=== PATIENT | male | born 1985 | race Caucasian/White ===

== ENCOUNTER 2025-01-21 09:49 | Outpatient (AMB) | payer BC, SELFPAY ==
--- NOTE | 2025-01-21 09:53 | MHC.PC.OV ---
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 ?? Prior PCP:?Antonio Melara MA Last office visit/CPE:? No PCP for Many Years Acute issue(s):? Est Care ?? PMHx:? Hemorrhoids SurgHx:? Lasik FHx:? Mom: Early onset Dementia. Dad: Diabetes. mGF: Bladder CA. pGF: Lung CA SocHx:? Nonsmoker. EtOH: about 3 beers a week. MJ Nightly. No other drigs [facility] Surgical History (Updated 01/21/25 @ 10:06 by Meredith Kong MA) Hx of LASIK Family History (Updated 01/21/25 @ 10:07 by Meredith Kong MA) Mother FH: mental illness Father Diabetes Maternal Grandmother Diabetes Paternal Grandmother Diabetes Social History (Updated 01/21/25 @ 10:01 by Meredith Kong MA) Housing: House Patient Tobacco Use Status: Never used Tobacco e-Cigarette/Vaping Use: Never Used Second Hand Smoke Exposure: No Use of substances other than those prescribed or required for medical reasons: No Substance Use Type: Marijuana service: No Current occupational status: employed 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 1. Little interest or pleasure in doing things: not at all 2. Feeling down, depressed, or hopeless: not at all 3. Trouble falling or staying asleep, or sleeping too much: not at all 4. Feeling tired or having little energy: not at all 5. Poor appetite or overeating: more than half the days 6. Feeling bad about yourself - or that you are a failure or have let yourself or your family down: not at all 7. Trouble concentrating on things, such as reading the newspaper or watching television: not at all 8. Moving or speaking so slowly that other people could have noticed. Or the opposite - being so fidgety or restless that you have been moving around a lot more than usual: not at all 9. Thoughts that you would be better off or of hurting yourself in some way: not at all Total score: 2 Depression Screening Interpretation: Negative Depression Screening Done: Yes 50020 - PHQ-9 Billing: Yes Source: Developed by Drs. Tramaine Jacques, Zenaida Rubin, Theron Howard and colleagues, with an educational jennifer from [employer]. Thrive Questionnaire Date Thrive assessed: 01/21/25 I am a: Patient What is your living situation today?: I have a steady place to live Within the past 12 months, did the food you bought not last and you didn't have the money to get more?: Never true Within the past 12 months, did you worry whether your food would run out before you got money to buy more?: Never true Do you have trouble paying for medicines?: No Do you have trouble getting transportation to medical appointments?: No Do you have trouble paying your heating and electricity bill?: No Do you have trouble taking care of your child, family member or friend?: No Do you have trouble with day-to-day activities such as bathing, preparing meals, shopping, managing finances, etc.?: No Are you currently unemployed and looking for a job?: No Are you interested in more education?: No Please select the resources that you would like help with: None Currently or been in a relationship where the following occur: No concerns reported THRIVE Score: 0 AUDIT C Alcohol Use Questionnaire (AUDIT-C) 1. How often do you have a drink containing alcohol?: 2-3 times a week 2. How many drinks containing alcohol do you have on a typical day when you are drinking?: 1 or 2 3. How often do you have six or more drinks on one occasion?: Never Total Score: 3 Score Reviewed/Action Taken: Yes KRISH-7 AMB Questionnaire KRISH-7 Date KRISH - 7 assessed: 01/21/25 Feeling nervous, anxious, or on edge: 0 = Not at all Not being able to stop or control worryin = Not at all Worrying too much about different things: 0 = Not at all Trouble relaxin = Not at all Being so restless that it is hard to sit still: 0 = Not at all Becoming easily annoyed or irritable: 0 = Not at all Feeling afraid as if something awful might happen: 0 = Not at all Total KRISH-7 score (0-4 normal; 5-9 mild; 10-14 moderate; 15-21 severe): 0 Source: Developed by Drs. Tramaine Jacques, Zenaida Rubin, Theron Howard and colleagues, with an educational jennifer from [employer]. KRISH-7 Assessment Billing KRISH-7 Assessment Tool: KRISH-7 Assessment 15346 Review of Systems Const Denies chills, Denies fatigue, Denies fever(s), Denies headache(s) and Denies weakness Eyes Denies change in vision ENT Denies dizziness and Denies headache(s) Card Denies chest pain, Denies lightheadedness, Denies dyspnea and Denies other (Palpitations) Resp Denies cough, Denies dyspnea, Denies wheezing and Denies other ( shortness of breath) GI Denies abdominal pain, Denies melena, Denies hematochezia, Denies change in bowel habits, Denies dyspepsia and Denies nausea Denies hematuria and Denies dysuria Musc Denies numbness and Denies tingling Skin/Breast Denies rash, Denies unusual bruising and Denies wounds Neuro Denies dizziness, Denies headache(s), Denies numbness, Denies Sensory deficit (Neuro), Denies tingling, Denies paresthesias and Denies weakness Psych Denies anxiety and Denies depression Endo Denies fatigue Polo/Lymph Denies easy bleeding and Denies easy bruising Aller/Immun Denies wheezing Physical exam (Primary Care) Vital Signs: Last Vital Signs Temp 98.0 F 01/21/25 10:01 Pulse 65 01/21/25 10:01 Resp 16 01/21/25 10:01 BP 120/69 01/21/25 10:01 Pulse Ox 100 01/21/25 10:01 Oxygen Delivery Method Room Air 01/21/25 10:01 BMI result Body Mass Index 24.5 Tobacco/Smoking Status: Tobacco use Status Tobacco use date assessed 01/21/25 01/21/25 10:01 Patient Tobacco Use Status Never used Tobacco 01/21/25 10:01 e-Cigarette/Vaping Use Never Used 01/21/25 10:01 PHQ-9: PHQ-9 Score PHQ-9: Total score 2 01/21/25 10:47 Depression Screening Interpretation: Negative Thrive Assessment: Date of Thrive Assessment Date Thrive assessed 01/21/25 01/21/25 09:56 Currently or been in a relationship where the following occur: No concerns reported Const General: no acute distress and well developed Nutritional Appearance: well nourished Orientation/consciousness: patient oriented x3 HENMT Head: Yes normocephalic and Yes atraumatic Ears: hearing grossly normal bilaterally and TM's normal bilaterally General nose exam: Normal external nose present and Normal nares present Mouth: Normal oral and palatal mucosa present and moist mucous membranes Teeth and gingiva: dentition normal Throat: Yes posterior oropharynx normal Eyes General: appearance normal, both eyes and all related structures Pupils: Equal, round and reactive pupils present EOM: EOMs intact bilaterally Neck Neck: Yes normal visual inspection, Yes no lymphadenopathy and Yes trachea midline Thyroid: Thyroid normal Carotids: no bruits Lymphatic: no lymphadenopathy noted Chest Chest palpation & inspection: normal inspection of the chest Resp Effort & Inspection: normal respiratory effort Auscultation: clear to auscultation bilaterally Cardio Rate: regular rate Rhythm: regular rhythm Heart sounds: S1 normal heart sound present, S2 normal heart sound present, no gallops, no murmurs and no rubs Bruits: no abdominal aortic bruits and no carotid bruits GI Palpation (GI): No Abdominal aortic bruit present, Soft to palpation, nontender, No hepatosplenomegaly present and No Rebound tenderness present Auscultation: normal bowel sounds General: Yes no CVA tenderness Back/Spine/Pelvis Back: no CVA tenderness Cervical Spine: cervical ROM normal and No Cervical spine tenderness Thoracic/Lumbar Spine: thoraco-lumbar ROM normal, No pain with thoraco-lumbar ROM, No thoracic spinal tenderness and No lumbar spinal tenderness Skin Lesions: no lesions Rashes: no rashes Trauma: no lacerations or abrasions Wounds: no wounds Nails: normal Neuro General: patient oriented x3 and gait normal Cranial nerves: Yes Equal, round and reactive pupils present Cognition (Neuro): normal cognition Gait exam (Neuro): Normal gait present Motor exam (neuro): 5/5 motor strength present throughout Sensory Exam: No Sensory deficit (Neuro) Deep tendon reflexes (DTR's): Right patellar reflex intensity grade: 2+ and Left patellar reflex intensity grade: 2+ Extrem General: Yes normal to inspection and No edema Psych Appearance: grossly normal Affect: normal affect Attitude: cooperative Thought process: Normal thought process present Coding Level of Care Code New Pt Level 3 (12529) New Pt Prev Care 18-39yr(65428 Diagnoses Adult general medical exam Z00.00 History of hemorrhoids Z87.19 Sun-damaged skin L57.8 Additional Codes KRISH-7 Assessment Billing - KRISH-7 Assessment Tool: KRISH-7 Assessment 11816 ([id number]) PHQ-9 - 50978 - PHQ-9 Billing: Yes ([id number]) Assessment & Plan Assessment & Plan (1) Adult general medical exam: Code(s): Z00.00 - Encounter for general adult medical examination without abnormal findings Category: Medical Plan: 39-year-old male presents as new patient for complete physical exam Encouraged healthy diet with active lifestyle and plenty of exercise (2) History of hemorrhoids: Code(s): Z87.19 - Personal history of other diseases of the digestive system Category: Medical Plan: Encouraged good hydration He will let know if he gets a flare-up (3) Sun-damaged skin: Code(s): L57.8 - Other skin changes due to chronic exposure to nonionizing radiation Category: Medical Plan: History of sun damaged skin and patient is bald. Several melanotic lesions on scalp Referred to dermatology Orders: Orders Lipid Panel Today Z00.00 - Encounter for general adult medical examination without abnormal findings Comprehensive [place]. Panel Fast Today Z00.00 - Encounter for general adult medical examination without abnormal findings Microalbumin, Random (w Creat) Today I10 - Essential (primary) hypertension UA CC w/rflx Micro + Cult Today Z00.00 - Encounter for general adult medical examination without abnormal findings TSH reflex Free T4 Today Z00.00 - Encounter for general adult medical examination without abnormal findings Referrals Dermatology Referral L57.8 - Other skin changes due to chronic exposure to nonionizing radiation
[2025-01-21 10:01] VITALS: BP 120/69; PULSE 65; RESP 16; TEMP 36.7; O2SAT 100; BMI 24.5
--- OUTSIDE RECORDS SUMMARY | 2025-01-21 10:38 | XMS_ITS | Clinical Summary ---
Author Organization [facility] Address [address] [place] [id number] Phone Care Team Providers Care Trommel Tender Name Role Phone Jeanmarie Fernandez MD Primary Care Provider [phone] Allergies No known active allergies Medications No known medications Social History Tobacco Use Types Packs/Day Years Used Date Smoking Tobacco: Never Smokeless Tobacco: Never Education Answer Date Recorded Are you interested in more education? Not on eryn e 09/20/2022 Are you concerned about learning? Not on file 09/20/2022 No 09/20/2022 No 09/20/2022 Digital Access Answer Date Recorded No 10/21/2022 No 10/21/2022 No 10/21/2022 Reliable internet access at home? Not on file 10/21/2022 Device with a working camera? Not on file Sex and Gender Information Value Date Recorded Sex Assigned at Not on file Legal Sex Male 5:56 PM EDT Gender Identity Not on file Sexual Orientation Not on file Last Filed Vital Signs Vital Sign Reading Time Taken Comments Blood Pressure 122/83 10/08/2018 9:42 AM EDT Pulse 89 10/08/2018 9:42 AM EDT Temperature 36.6 C (97.8 F) 10/08/2018 9:42 AM EDT Respiratory Rate - - Oxygen Saturation 100% 10/08/2018 9:42 AM EDT Inhaled Oxygen Concentration - - Weight - - Height - - Body Mass Index - - Plan of Treatment Health Maintenance Due Date Last Done Comments LIPID PANEL 1986 DEPRESSION SCREENING 1998 HEPATITIS C SCREENING 2004 HIV ONE-TIME SCREENING (18-6 5 YEARS) 2004 COVID-19 VACCINE (3 2023-2 5 season) 2024 2020, 09/07/2020 Adult Td,Tdap Booster 10/01/2025 10/02/2015 SMOKING STATUS SCREENING (On ce After 26 Yrs) Completed 10/08/2018 HEPATITIS A VACCINES Aged Out No long er eligible based on patient's age to complete this topic HIB VACCINES Aged Out No longer eligi ble based on patient's age to complete this topic MENINGOCOCCAL VACCINES (ACWY) Aged Out No longer eligible based on patient's age to complete this topic MENINGOCOCCAL VACCINES (B) Aged Out N o longer eligible based on patient's age to complete this topic PNEUMOCOCCAL VACCINES (0-49 years) Aged Out No longer eligible b ased on patient's age to complete this topic Medical Devices Not on file Care Teams Trommel Tender Relationship Specialty Start Date End Date Jeanmarie Fernandez MD [email or web address] PCP - General Family Medicine 12/24/17 Additional Source Comments The information contained in this document represents components of the legal health record. It is not the complete legal health record.[facility]
--- OUTSIDE RECORDS SUMMARY | 2025-01-21 10:38 | XMS_ITS | Encounter Summary ---
Author Organization [facility] Address [address] [place] [id number] Phone Care Team Providers Care Supportability Engineer Name Role Phone Jeanmarie Fernandez MD Primary Care Provider [phone] Jeanmarie Fernandez MD Primary Care Provider [phone] Encounter Details Date Type Department Care Team (Late st Contact Info) Description 10/29/2016 Transcribe Orders [facility] Admissions Department - Virtual Department [address] [place] [id number] Jeanmarie Fernandez MD [address] [place] [phone] [email or web address] Social History Tobacco Use Types Packs/Day Years Used Date Smoking Tobacco: Never Assessed Sex and Gender Information Value Date Recorded Sex Assigned at Not on file Legal Sex Male 5:56 PM EDT Gender Identity Not on file Sexual Orientation Not on file documented as of this encounter Plan of Treatment Not on file documented as of this encounter Visit Diagnoses Not on filedocumented in this encounter Care Teams Supportability Engineer Relationship Specialty Start Date End Date Jeanmarie Fernandez MD [email or web address] PCP - General Family Medicine 10/29/16 10/29/16 Jeanmarie Fernandez MD [phone] (work) [email or web address] PCP - General Family Medicine 12/24/17 documented as of this encounter Additional Source Comments The information contained in this document represents components of the legal health record. It is not the complete legal health record.[facility]
== END 2025-01-21 11:22 | disposition home or self-care (01) ==
LOC: HO.HMCFM 09:50
PROVIDERS: PCP Family Medicine; Visit Provider Family Medicine
DX: Z00.00 Encounter for general adult medical examination without abnormal findings (principal); Z87.19 Personal history of other diseases of the digestive system; L57.8 Other skin changes due to chronic exposure to nonionizing radiation

== ENCOUNTER → 2025-01-21 09:49 | Outpatient (BNVA) | payer BC, SELFPAY | PROVIDERS: PCP Family Medicine; Visit Provider Family Medicine | DX: Z00.00 Encounter for general adult medical examination without abnormal findings (principal); I10 Essential (primary) hypertension; L57.8 Other skin changes due to chronic exposure to nonionizing radiation; Z87.19 Personal history of other diseases of the digestive system | CPT/HCPCS: 96127 ==

== ENCOUNTER 2025-01-28 08:47 | Outpatient (REF) | payer BC, SELFPAY ==
--- OUTSIDE RECORDS SUMMARY | 2025-01-28 09:20 | XMS_ITS | Encounter Summary ---
Author Organization [facility] Address [address] [place] [address] Phone Care Team Providers Care Magazine Hand Name Role Phone Jeanmarie Fernandez MD Primary Care Provider [phone] Jeanmarie Fernandez MD Primary Care Provider [phone] Encounter Details Date Type Department Care Team (Late st Contact Info) Description 10/29/2016 Transcribe Orders [facility] Admissions Department - Virtual Department [address] [place] [phone] Jeanmarie Fernandez MD [address] [place] [phone] Social History Tobacco Use Types Packs/Day Years [...] on filedocumented in this encounter Care Teams Magazine Hand Relationship Specialty Start Date End Date Jeanmarie Fernandez MD PCP - General Family Medicine 10/29/16 10/29/16 Jeanmarie Fernandez MD [phone] (work) [email or web address] PCP - General Family Medicine 12/24/17 documented as of this encounter Additional Source Comments The information contained in this document represents components of the legal health record. It is not the complete legal health record.[facility]
--- OUTSIDE RECORDS SUMMARY | 2025-01-28 09:20 | XMS_ITS | Clinical Summary ---
Author Organization [facility] Address [address] [place] [phone] Phone Care Team Providers Care Credit Rating Inspector Name Role Phone Jeanmarie Fernandez MD Primary Care Provider [phone] Allergies No known active allergies Medications No [...] HIV ONE-TIME SCREENING (18-6 5 YEARS) 2004 INFLUENZA VACCINE (#1) 2024 04/11/2016 COVID-19 VACCINE (3 - 2024-2 6 season) 2025 2020, 09/07/2020 Adult Td,Tdap Booster 10/01/2025 10/02/2015 [...] Medical Devices Not on file Care Teams Credit Rating Inspector Relationship Specialty Start Date End Date Jeanmarie Fernandez MD [email or web address] PCP - General Family Medicine 12/24/17 Additional Source Comments The information contained in this document represents components of the legal health record. It is not the complete legal health record.[facility]
[2025-01-28 11:13] LABS: Appearance Urine Clear; Glucose Urine UA Negative (Negative); PH 5.5 (5.0-9.0); Specific Gravity - Urine >= 1.030 (1.005-1.025)
[2025-01-28 11:50] LABS: Alanine Aminotransferase 32 U/L (0-40); Albumin Level 4.9 g/dL (3.5-5.0); Alkaline Phosphatase 78 U/L (39-117); Anion Gap 9 (12-20); Aspartate Amino Transferase 31 U/L (5-37); Blood Urea Nitrogen 19 mg/dL (9-16); Calcium 9.2 mg/dL (8.4-10.2); Carbon Dioxide 30 mmol/L (22-29); Chloride 105 mmol/L (96-108); Cholesterol 230 mg/dL (<200); Estimated Glomerular Filt Rate > 60; HDL Cholesterol 39 mg/dL (>40); Potassium 4.1 mmol/L (3.3-5.1); Sodium 140 mmol/L (135-145); Total Protein 7.5 g/dL (6.5-8.0); Triglycerides 125 mg/dL (<150)
[2025-01-28 12:04] LABS: Microalbum/Creatinine Ratio Ur 3.5 ug/mg cr (<30)
== END 2025-01-28 08:48 | disposition home or self-care (01) ==
LOC: HO.WFDLDS 08:47
PROVIDERS: Visit Provider Family Medicine
DX: Z00.00 Encounter for general adult medical examination without abnormal findings (principal); I10 Essential (primary) hypertension
CPT/HCPCS: 36415; 80053; 80061; 81003; 82043; 82570; 84443

== ENCOUNTER 2025-03-10 11:59 | Outpatient (REF) | payer OTHER, SELFPAY ==
[2025-03-10 17:37] LABS: MANUAL DIFF FLAG NO
[2025-03-10 17:47] LABS: Hematocrit 46.5 % (42.0-52.0); Hemoglobin 15.4 g/dl (14.0-18.0); Imm Gran Abs Auto 0.01 X10*3/uL (0.00-0.03); Imm Gran Pct Auto 0.1 % (0.0-0.4); Lymphocytes Absolute Auto 1.8 X10*3/uL (1.2-4.9); Mean Corpuscular HGB Conc 33.1 g/dl (31.0-36.0); Mean Corpuscular Hemoglobin 29.3 pg (27.0-33.0); Mean Corpuscular Volume 88.6 fL (80.0-98.0); NRBC Abs Auto 0.000 X10*3/uL (0.0-0.012); NRBC Pct Auto 0.0 /100WBC (0.0-0.2); Platelet Count 329 X10*3/uL (160-400); Red Blood Count 5.25 X10*6/uL (4.60-5.80); White Blood Count 7.1 X10*3/uL (4.8-10.8)
[2025-03-10 18:00] LABS: Alanine Aminotransferase 24 U/L (0-40); Albumin Level 5.0 g/dL (3.5-5.0); Alkaline Phosphatase 79 U/L (39-117); Anion Gap 14 (12-20); Aspartate Amino Transferase 24 U/L (5-37); Blood Urea Nitrogen 14 mg/dL (9-16); Calcium 9.5 mg/dL (8.4-10.2); Carbon Dioxide 28 mmol/L (22-29); Chloride 103 mmol/L (96-108); Estimated Glomerular Filt Rate > 60; Potassium 3.8 mmol/L (3.3-5.1); Sodium 141 mmol/L (135-145); Total Protein 7.7 g/dL (6.5-8.0)
[2025-03-10 18:32] LABS: Erythrocyte Sedimentation Rate 5 MM/HR (0-15)
[2025-03-10 18:35] LABS: Folate 7.9 ng/mL (> or = 4.0); Vitamin B12 440 pg/mL (200-900)
[2025-03-11 09:29] LABS: Lyme Abs Screen <0.90 index
== END 2025-03-10 12:00 | disposition home or self-care (01) ==
LOC: HO.WFDLDS 11:59
PROVIDERS: PCP Family Medicine; Visit Provider Family Medicine
DX: Z00.00 Encounter for general adult medical examination without abnormal findings (principal); R42 Dizziness and giddiness; R73.01 Impaired fasting glucose; E53.8 Deficiency of other specified B group vitamins; R53.83 Other fatigue; H53.8 Other visual disturbances; E78.5 Hyperlipidemia, unspecified; R55 Syncope and collapse
CPT/HCPCS: 36415; 80053; 82607; 82746; 83036; 84443; 85025; 85652; 86141; 86617; 86618

== ENCOUNTER 2025-03-10 11:59 | Outpatient (AMB) | payer OTHER, SELFPAY ==
--- NOTE | 2025-03-10 12:04 | MHC.PC.OV ---
Vital Signs 03/10/25 12:06 03/10/25 12:38 03/10/25 12:38 03/10/25 12:39 Height 5 ft 10 in Weight 168 lb BMI 24.1 BP 128/88 138/83 124/84 126/84 Blood Pressure Location Rt brachial Rt brachial Rt brachial Rt brachial Position Sitting Supine Sitting Standing Respiration 14 Pulse 74 71 75 83 Pulse Source Pulse Oximeter Pulse Oximeter Pulse Oximeter Pulse Oximeter Temp 98 F Temp Source Oral Pulse Oximetry (%) 98 100 100 100 Oxygen Delivery Method Room Air Room Air Room Air Room Air Intake Visit Reasons: dizziness with fatigue and vision changes. Intake Note: Dizziness, fatigue, and vision changes. Started February 18. Bull Gang Supervisor Required: No Allergies No Known Allergies Allergy (Verified 03/10/25 12:06) Medication List - Last Reconciled 03/10/25 by Vicente Marcial MD atorvastatin (Lipitor) 40 mg PO BEDTIME 90 days Tobacco use date assessed: 03/10/25 Dental Screening Dental Screen Date: 01/21/25 HPI dizziness with fatigue and vision changes. HPI Details 39 y/o male presents today with complaints of dizziness with fatigue and vision changes. He notes symptoms started x3 weeks ago. Pt describes vision changes as blurriness/lack of ability to focus. He notes symptoms started Jan. . Denies any dizziness on exertion and notes he had been standing for awhile. He had reported fatigue the rest of the day. He notes he saw an opthalmologist and exam had been unrevealing. Labs were drawn 01/28/25. Triglycerides 125. TC 230. LDL 166. HDL low at 39. 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 Current occupational exposures/hazards: No Cognitive needs: No Hearing needs: No Vision needs: No Questionnaire Thrive Questionnaire Date Thrive assessed: 01/18/25 I am a: Patient What is your living situation today?: I have a steady place to live Within the past 12 months, did the food you bought not last and you didn't have the money to get more?: Never true Within the past 12 months, did you worry whether your food would run out before you got money to buy more?: Never true Do you have trouble paying for medicines?: No Do you have trouble getting transportation to medical appointments?: No Do you have trouble paying your heating and electricity bill?: No Do you have trouble taking care of your child, family member or friend?: No Do you have trouble with day-to-day activities such as bathing, preparing meals, shopping, managing finances, etc.?: No Are you currently unemployed and looking for a job?: No Are you interested in more education?: No Please select the resources that you would like help with: None Currently or been in a relationship where the following occur: No concerns reported THRIVE Score: 0 AUDIT C Alcohol Use Questionnaire (AUDIT-C) 1. How often do you have a drink containing alcohol?: Monthly or less 2. How many drinks containing alcohol do you have on a typical day when you are drinking?: 1 or 2 3. How often do you have six or more drinks on one occasion?: Never Total Score: 1 KRISH-7 AMB Questionnaire KRISH-7 Date KRISH - 7 assessed: 01/21/25 Source: Developed by Drs. Tramaine Jacques, Zenaida Rubin, Theron Howard and colleagues, with an educational jennifer from [employer] Review of Systems Const Denies chills, Denies fatigue, Denies fever(s), Denies headache(s) and Denies weakness ENT Denies dizziness and Denies headache(s) Card Denies dyspnea Resp Denies cough, Denies dyspnea, Denies wheezing and Denies other (shortness of breath) Musc Denies numbness and Denies tingling Neuro Denies dizziness, Denies headache(s), Denies numbness, Denies tingling and Denies weakness Psych Denies anxiety and Denies depression Endo Denies fatigue Aller/Immun Denies wheezing Physical exam (Primary Care) Vital Signs: Last Vital Signs Temp 98 F 03/10/25 12:06 Pulse 74 10/16/25 12:06 Resp 14 03/10/25 12:06 BP 128/88 03/10/25 12:06 Pulse Ox 98 03/10/25 12:06 Oxygen Delivery Method Room Air 03/10/25 12:06 BMI result Body Mass Index 24.1 Tobacco/Smoking Status: Tobacco use Status Tobacco use date assessed 03/10/25 03/10/25 12:10 Patient Tobacco Use Status Never used Tobacco 03/10/25 12:06 e-Cigarette/Vaping Use Never Used 03/10/25 12:06 Thrive Assessment: Date of Thrive Assessment Date Thrive assessed 01/18/25 03/10/25 12:05 Currently or been in a relationship where the following occur: No concerns reported Const General: well developed; No acute distress Nutritional Appearance: well nourished Orientation/consciousness: patient oriented x3 HENMT Head: Yes normocephalic and Yes atraumatic Eyes General: appearance normal, both eyes and all related structures Pupils: Equal, round and reactive pupils present EOM: EOMs intact bilaterally Resp Effort & Inspection: normal respiratory effort Auscultation: clear to auscultation bilaterally Cardio Rate: regular rate Rhythm: regular rhythm Heart sounds: S1 normal heart sound present, S2 normal heart sound present, no gallops, no murmurs and no rubs Neuro General: patient oriented x3 and gait normal Cranial nerves: Yes Equal, round and reactive pupils present Psych Affect: normal affect Coding Level of Care Code Est Pt Level 4 (81432) Diagnoses Dizziness R42 Vision changes H53.9 Hyperlipidemia E78.5 Pre-syncope R55 Assessment & Plan Assessment & Plan (1) Dizziness: Code(s): R42 - Dizziness and giddiness Category: Medical Plan: Around Feb 16 dizziness episode. No exertion. Had been standing for a while. Lightheadedness. Presyncopal description. Then fatigue for the rest of the day. Shortly after while driving home he had sudden vision change at L eye with inability to focus. L eye vision change and saw Ophtho. was able to see with lens testing. He also mentioned to Ophtho that he had gotten some peroxide in eye a few weeks before vision change. He was told eye looked healthy - h/o Lasik and this looked ok too. Given eye drops; Tobramycin w/ Dexamethasone & Systane. Still cannot focus w/ L eye. (2) Vision changes: Code(s): H53.9 - Unspecified visual disturbance Category: Medical (3) Hyperlipidemia: Code(s): E78.5 - Hyperlipidemia, unspecified Category: Medical (4) Pre-syncope: Code(s): R55 - Syncope and collapse (5) Pre-syncope: Code(s): R55 - Syncope and collapse Category: Medical Plan Episode of presyncope and severe fatigue and shortly thereafter sudden change in vision of left eye EKG today is normal. Cardiac exam normal lungs are clear Neuro exam: Cranial nerves 3-12 intact - patient notes change inability to focus at left eye and ophthalmology testing did not reveal problem with the eye. Will check CBC and CMP as well as thyroid levels inflammatory markers. Checking carotid ultrasound and Holter monitor test Checking MRI Head/Brain Will return 7-10 days for close follow-up review of the above. Go to ED if symptoms recur or worsen Orders: Orders Comprehensive Met. Panel Today R42 - Dizziness and giddiness TSH reflex Free T4 Today R42 - Dizziness and giddiness, Z00.00 - Encounter for general adult medical examination without abnormal findings Hemoglobin A1c Today R42 - Dizziness and giddiness, R73.01 - Impaired fasting glucose Vitamin B12 and Folate Today E53.8 - Deficiency of other specified B group vitamins, R42 - Dizziness and giddiness AMB EKG-In Office Today R42 - Dizziness and giddiness Lyme IgG/IgM w/reflex to WB Today R42 - Dizziness and giddiness ECG holter monitor 48 hour Today R42 - Dizziness and giddiness, R55 - Syncope and collapse Complete Blood Count Auto Diff Today R42 - Dizziness and giddiness, Z00.00 - Encounter for general adult medical examination without abnormal findings Erythrocyte Sedimentation Rate Today R42 - Dizziness and giddiness CRP High Sensitivity Today R42 - Dizziness and giddiness US carotid duplex BI Today E78.5 - Hyperlipidemia, unspecified, H53.9 - Unspecified visual disturbance, R42 - Dizziness and giddiness MR head/brain w con Today E78.5 - Hyperlipidemia, unspecified, H53.9 - Unspecified visual disturbance, R42 - Dizziness and giddiness, R55 - Syncope and collapse Referrals Neurology Referral H53.9 - Unspecified visual disturbance, R42 - Dizziness and giddiness, R55 - Syncope and collapse Medications: New atorvastatin (Lipitor) 40 mg PO BEDTIME 90 tabs 3RF 90 days
[2025-03-10 12:06] VITALS: BP 128/88; PULSE 74; RESP 14; TEMP 36.6; O2SAT 98; BMI 24.1
[2025-03-10 12:38] VITALS: BP 124/84; BP 138/83; PULSE 71; PULSE 75; O2SAT 100
[2025-03-10 12:39] VITALS: BP 126/84; PULSE 83; O2SAT 100
--- OUTSIDE RECORDS SUMMARY | 2025-03-10 15:13 | XMS_ITS | Encounter Summary ---
Author Organization [facility] Address [address] [place] [address] Phone Care Team Providers Care Retread Builder Name Role Phone Jeanmarie Fernandez MD Primary Care Provider [phone] Jeanamrie Fernnadez MD Primary Care Provider [phone] Encounter Details Date Type Department Care Team (Late st Contact Info) Description 10/29/2016 Transcribe Orders [facility] Admissions Department - Virtual Department [address] [place] [id number] Jeanmarie Fernandez MD [address] [place] [phone] [email or web address] Social History Tobacco Use Types Packs/Day Years [...] on filedocumented in this encounter Care Teams Retread Builder Relationship Specialty Start Date End Date Jeanmarie Fernandez MD [email or web address] PCP - General Family Medicine 10/29/16 10/29/16 Jeanmarie Fernandez MD [phone] (work) [email or web address] PCP - General Family Medicine 12/24/17 documented as of this encounter Additional Source Comments The information contained in this document represents components of the legal health record. It is not the complete legal health record.[facility]
--- OUTSIDE RECORDS SUMMARY | 2025-03-10 15:13 | XMS_ITS | Clinical Summary ---
Author Organization [facility] Address [address] [place] [address] Phone Care Team Providers Care Photoengraving Printer Name Role Phone Jeanmarie Fernandez MD Primary Care Provider [phone] Allergies No known active allergies Medications No [...] Medical Devices Not on file Care Teams Photoengraving Printer Relationship Specialty Start Date End Date Jeanmarie Fernandez MD [email or web address] PCP - General Family Medicine 12/24/17 Additional Source Comments The information contained in this document represents components of the legal health record. It is not the complete legal health record.[facility]
== END 2025-03-10 13:06 | disposition home or self-care (01) ==
LOC: HO.HMCFM 11:59
PROVIDERS: PCP Family Medicine; Visit Provider Family Medicine
DX: R42 Dizziness and giddiness (principal); H53.9 Unspecified visual disturbance; E78.5 Hyperlipidemia, unspecified; R55 Syncope and collapse

== ENCOUNTER → 2025-03-21 07:31 | Outpatient (REF) | payer OTHER, SELFPAY ==
--- OUTSIDE RECORDS SUMMARY | 2025-03-21 07:34 | XMS_ITS | Encounter Summary ---
Author Organization [facility] Address [address] [place] [phone] Phone Care Team Providers Care Property Manager Name Role Phone Jeanmarie Fernandez MD Primary Care Provider [phone] Jeanmarie Fernandez MD Primary Care Provider [phone] Encounter Details Date Type Department Care Team (Late st Contact Info) Description 10/29/2016 Transcribe Orders [facility] Admissions Department - Virtual Department [address] [place] [phone] Jeanmarie Fernandez MD [address] [place] [address] Social History Tobacco Use Types Packs/Day Years [...] on filedocumented in this encounter Care Teams Property Manager Relationship Specialty Start Date End Date Jeanmarie Fernandez MD PCP - General Family Medicine 10/29/16 10/29/16 Jeanmarie Fernandez MD [phone] (work) [email or web address] PCP - General Family Medicine 12/24/17 documented as of this encounter Additional Source Comments The information contained in this document represents components of the legal health record. It is not the complete legal health record.[facility]
--- OUTSIDE RECORDS SUMMARY | 2025-03-21 07:34 | XMS_ITS | Clinical Summary ---
Author Organization [facility] Address [address] [place] [address] Phone Care Team Providers Care Brusher Name Role Phone Jeanmarie Fernandez MD Primary Care Provider [phone] Allergies No known active allergies Medications No [...] Medical Devices Not on file Care Teams Brusher Relationship Specialty Start Date End Date Jeanmarie Fernandez MD [email or web address] PCP - General Family Medicine 12/24/17 Additional Source Comments The information contained in this document represents components of the legal health record. It is not the complete legal health record.[facility]
--- NOTE | 2025-03-21 07:35 | HM_ITS ---
Conclusion: 1. Patient was monitored for total period of 2 days 2. Baseline was normal sinus rhythm with average heart of 79 beats per minute 3. No significant arrhythmias or pauses noted 4. No patient reported events MTDD
== END ==
LOC: HO.CARD 07:31
PROVIDERS: PCP Family Medicine; Visit Provider Family Medicine
DX: R55 Syncope and collapse (principal); R42 Dizziness and giddiness
CPT/HCPCS: 93225

== ENCOUNTER → 2025-03-21 07:35 | Outpatient (BNV) | payer OTHER, SELFPAY | PROVIDERS: PCP Family Medicine; Visit Provider Internal Medicine Cardiovascular Disease | DX: R55 Syncope and collapse (principal) | CPT/HCPCS: 93227 ==

== ENCOUNTER 2025-03-25 14:22 | Outpatient (REF) | payer OTHER, SELFPAY ==
--- NOTE | ~2025-03-25 | US_ITS ---
EXAMINATION: US EXTRACRANIAL CAROTID DUPLEX, BILATERAL CLINICAL INFORMATION: R 42. Dizziness and giddiness. COMPARISON: None available. TECHNIQUE: Real-time ultrasound and Doppler techniques (integrating B-mode 2-D vascular images, Doppler spectral analysis and color-flow Doppler imaging) were utilized to interrogate the extracranial carotid arteries, the vertebral arteries and proximal subclavian arteries bilaterally. The degree of stenosis is determined by criteria similar to NASCET. FINDINGS: Right Side: 1. There is no atherosclerotic plaque seen in the bifurcation/proximal ICA region. 2. The common carotid artery PSV proximally is 122 cm/s and distally 101 cm/s. 3. The proximal internal carotid artery velocities are 90 cm/s systolic and 39 cm/s diastolic. 4. The proximal external carotid artery PSV is 125 cm/s. 5. The vertebral artery shows antegrade flow. 6. The subclavian artery waveforms are normal. ICA/CCA ratio: 0.64. Left Side: 1. There is no atherosclerotic plaque seen in the bifurcation/proximal ICA region. 2. The common carotid artery PSV proximally is 113 cm/s and distally 102 cm/s. 3. The proximal internal carotid artery velocities are 78 cm/s systolic and 33 cm/s diastolic. 4. The proximal external carotid artery PSV is 110 cm/s. 5. The vertebral artery shows antegrade flow. 6. The subclavian artery waveforms are normal. ICA/CC ratio: 0.69. US/US carotid duplex BI IMPRESSION: 1. RIGHT: No hemodynamically significant stenosis by ultrasound criteria. Normal exam. 2. LEFT: No hemodynamically significant stenosis by ultrasound criteria. Normal exam. Electronically signed by: Vinh Webber MD 03/25/2025 03:02 PM EDT
--- OUTSIDE RECORDS SUMMARY | 2025-03-25 14:59 | XMS_ITS | Clinical Summary ---
Author Organization [facility] Address [address] [place] [address] Phone Care Team Providers Care Mechanic Assistant Name Role Phone Jeanmarie Fernandez MD Primary Care Provider [phone] Allergies No known active allergies Medications No [...] Medical Devices Not on file Care Teams Mechanic Assistant Relationship Specialty Start Date End Date Jeanmarie Fernandez MD [email or web address] PCP - General Family Medicine 12/24/17 Additional Source Comments The information contained in this document represents components of the legal health record. It is not the complete legal health record.[facility]
--- OUTSIDE RECORDS SUMMARY | 2025-03-25 14:59 | XMS_ITS | Encounter Summary ---
Author Organization [facility] Address [address] [place] [address] Phone Care Team Providers Care Merchandise Executive Name Role Phone Jeanmarie Fernandez MD Primary Care Provider [phone] Jeanmarie Fernandez MD Primary Care Provider [phone] Encounter Details Date Type Department Care Team (Late st Contact Info) Description 10/29/2016 Transcribe Orders [facility] Admissions Department - Virtual Department [address] [place] [address] Jeanmarie Fernandez MD [address] [place] [phone] Social History Tobacco Use Types Packs/Day Years [...] on filedocumented in this encounter Care Teams Merchandise Executive Relationship Specialty Start Date End Date Jeanmarie Fernandez MD PCP - General Family Medicine 10/29/16 10/29/16 Jeanmarie Fernandez MD [phone] (work) [email or web address] PCP - General Family Medicine 12/24/17 documented as of this encounter Additional Source Comments The information contained in this document represents components of the legal health record. It is not the complete legal health record.[facility]
== END 2025-03-25 14:23 | disposition home or self-care (01) ==
LOC: HO.US 14:22
PROVIDERS: PCP Family Medicine; Visit Provider Family Medicine
DX: R42 Dizziness and giddiness (principal); H53.9 Unspecified visual disturbance; E78.5 Hyperlipidemia, unspecified
CPT/HCPCS: 93880

== ENCOUNTER → 2025-03-25 14:23 | Outpatient (BNV) | payer OTHER, SELFPAY | PROVIDERS: PCP Family Medicine; Visit Provider Radiology Diagnostic Radiology | DX: R42 Dizziness and giddiness (principal) | CPT/HCPCS: 93880 ==

== ENCOUNTER 2025-03-29 12:29 | Outpatient (AMB) | payer OTHER, SELFPAY ==
[2025-03-29 12:36] VITALS: BP 114/70; PULSE 87; O2SAT 100; BMI 23.5
--- NOTE | 2025-03-29 12:36 | MHC.OFFVIS ---
Vital Signs 03/29/25 12:36 Height 5 ft 10 in Weight 163 lb 8 oz BMI 23.5 BP 114/70 Blood Pressure Location Rt brachial Position Sitting Pulse 87 Pulse Source Pulse Oximeter Pulse Oximetry (%) 100 Oxygen Delivery Method Room Air Intake Visit Reasons: INP-Dizziness and giddiness - Ok by MD Intake Note: Dizziness and giddiness Cloth Brushing And Sueding Supervisor Required: No Accompanied by: Self / Same As Patient Allergies No Known Allergies Allergy (Verified 03/29/25 12:36) Medication List - Last Reconciled 03/29/25 by Yanely Morris MD aspirin 81 mg PO DAILY atorvastatin (Lipitor) 40 mg PO BEDTIME 90 days HPI Comments Details: 39y/o Right handed male comes for evaluation of dizziness. On Feb 17 2025 ( 1 month ago ) he was working looking at his computer screen - felt intense dizziness- weak , lightheaded. He has a standing desk - he leaned his head down and when he walked to the bathroom he felt like he was not steady in space and is going to fall over. No vomiting No headaches He cui son and off tinnitus The whole episode lasted about 10min - intense , felt off for about 60minutes atleast.2 days later he noticed his left eye vision was blurry. He saw an station superintendent - was told everything was normal. No double vision , no weakness , numbness . Denies ear pain. 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 Current occupational exposures/hazards: No Cognitive needs: No Hearing needs: No Vision needs: No Physical Exam Vital Signs: Last Vital Signs Pulse 87 03/29/25 12:36 BP 114/70 03/29/25 12:36 Pulse Ox 100 03/29/25 12:36 Oxygen Delivery Method Room Air 03/29/25 12:36 BMI result Body Mass Index 23.5 Const General: cooperative, healthy appearing, comfortable and no acute distress Nutritional Appearance: average body habitus Orientation/consciousness: patient oriented x3 Eyes Pupils: Equal, round and reactive pupils present Neck Neck: Yes no meningeal signs Neuro General: patient oriented x3, gait normal, tone normal, moves all extremities, no meningeal signs and no focal motor deficits Cranial nerves: Yes Facial sensation intact/muscles of mastication intact, Yes Equal, round and reactive pupils present, Yes Bilaterally intact EOM present, Yes Nystagmus not present, Yes Normal facial strength present, Yes Midline tongue present, Yes Symmetric palate elevation present and Yes Ability to bilaterally elevate shoulders present Cognition (Neuro): normal cognition Gait exam (Neuro): Normal gait present Motor exam (neuro): 5/5 motor strength present throughout and Normal motor muscle tone present throughout Deep tendon reflexes (DTR's): Right triceps reflex intensity grade: 1+, Left triceps reflex intensity grade: 2+, Rt Biceps (C5, C6): 1+, Left biceps reflex intensity grade: 2+, Right brachioradialis reflex intensity grade: 1+, Left brachioradialis reflex intensity grade: 2+, Right patellar reflex intensity grade: 2+ and Left patellar reflex intensity grade: 3+ Coordination: [id number] test normal Assessment & Plan Assessment & Plan (1) Dizziness: Comment: vertigo ? O/E has some asymmetrical reflexes , reports double vision Code(s): R42 - Dizziness and giddiness Category: Medical (2) Blurry vision: Code(s): H53.8 - Other visual disturbances Category: Medical Plan I will evaluate him with MRI with and without keri Evoked potential to evaluate. Orders: Orders MR head/brain wo/w con Today H53.9 - Unspecified visual disturbance, R42 - Dizziness and giddiness EP Visual Evoked Potential Today H53.9 - Unspecified visual disturbance Coding Level of Care Code New Pt Level 4 (60477) Diagnoses Dizziness R42 Blurry vision H53.8
--- OUTSIDE RECORDS SUMMARY | 2025-03-29 15:13 | XMS_ITS | Clinical Summary ---
Author Organization [facility] Address [address] [place] [address] Phone Care Team Providers Care Firestopper Installer Name Role Phone Jeanmarie Fernandez MD Primary Care Provider [phone] Allergies No known active allergies Medications No [...] Medical Devices Not on file Care Teams Firestopper Installer Relationship Specialty Start Date End Date Jeanmarie Fernandez MD [email or web address] PCP - General Family Medicine 12/24/17 Additional Source Comments The information contained in this document represents components of the legal health record. It is not the complete legal health record.[facility]
--- OUTSIDE RECORDS SUMMARY | 2025-03-29 15:13 | XMS_ITS | Encounter Summary ---
Author Organization [facility] Address [address] [place] [phone] Phone Care Team Providers Care Tar Heater Operator Name Role Phone Jeanmarie Fernandez MD Primary Care Provider [phone] Jeanmarie Fernandez MD Primary Care Provider [phone] Encounter Details Date Type Department Care Team (Late st Contact Info) Description 10/29/2016 Transcribe Orders [facility] Admissions Department - Virtual Department [address] [place] [address] Jeanmarie Fernandez MD [address] [place] [phone] [email or web address] Social History Tobacco Use Types Packs/Day Years [...] on filedocumented in this encounter Care Teams Tar Heater Operator Relationship Specialty Start Date End Date Jeanmarie Fernandez MD [email or web address] PCP - General Family Medicine 10/29/16 10/29/16 Jeanmarie Fernandez MD [phone] (work) [email or web address] PCP - General Family Medicine 12/24/17 documented as of this encounter Additional Source Comments The information contained in this document represents components of the legal health record. It is not the complete legal health record.[facility]
== END 2025-03-29 13:07 | disposition home or self-care (01) ==
LOC: HO.HSMS 12:31
PROVIDERS: PCP Family Medicine; Visit Provider Psychiatry & Neurology Neurology
DX: R42 Dizziness and giddiness (principal); H53.8 Other visual disturbances
CPT/HCPCS: 99204

== ENCOUNTER → 2025-04-24 13:45 | Outpatient (BNV) | payer OTHER, SELFPAY | PROVIDERS: PCP Family Medicine; Visit Provider Radiology Diagnostic Radiology | DX: H53.9 Unspecified visual disturbance (principal); J34.89 Other specified disorders of nose and nasal sinuses | CPT/HCPCS: 70553 ==

== ENCOUNTER 2025-04-24 13:49 | Outpatient (REF) | payer OTHER, SELFPAY ==
--- NOTE | ~2025-04-24 | MR_ITS ---
EXAMINATION: MR BRAIN WITHOUT AND WITH CONTRAST CLINICAL INFORMATION: H53.9. Unspecified visual disturbances. COMPARISON: None available. TECHNIQUE: Multiplanar, multisequence MRI of the brain was obtained before and after the intravenous administration of 7.5 mL gadolinium based without reported immediate complications.. FINDINGS: No restricted diffusion. No abnormal enhancement within the intra-axial or the extra-axial compartment of the cranium. No acute intracranial hemorrhage, mass effect, midline shift, hydrocephalus or herniation. Bansal-white matter differentiation is normal. Posterior cranial fossa contents demonstrated no signal abnormality or masses. Normal position of the cerebellar tonsils. Sellar/suprasellar region is normal. Flow-void signal within the main cerebral vessels is normal. Polypoid mucosal thickening, maxillary sinuses. Mucous retention cyst, maxillary sinuses. MR/MR head/brain wo/w con IMPRESSION: No acute or structural brain abnormality. No abnormal enhancement. Polypoid maxillary sinus disease. Electronically signed by: Vinh Webber MD 04/25/2025 07:18 AM JAMAAL
--- OUTSIDE RECORDS SUMMARY | 2025-04-24 13:52 | XMS_ITS | Encounter Summary ---
Author Organization [facility] Address [address] [place] [phone] Phone Care Team Providers Care Bisque Finisher Name Role Phone Jeanmarie Fernandez MD Primary Care Provider [phone] Jeanmarie Fernandez MD Primary Care Provider [phone] Encounter Details Date Type Department Care Team (Late st Contact Info) Description 10/29/2016 Transcribe Orders [facility] Admissions Department - Virtual Department [address] [place] [phone] Jeanmarie Fernandez MD [address] [place] [phone] [email or web address] Social History Tobacco Use Types Packs/Day Years [...] on filedocumented in this encounter Care Teams Bisque Finisher Relationship Specialty Start Date End Date Jeanmarie Fernandez MD [email or web address] PCP - General Family Medicine 10/29/16 10/29/16 Jeanmarie Fernandez MD [phone] (work) [email or web address] PCP - General Family Medicine 12/24/17 documented as of this encounter Additional Source Comments The information contained in this document represents components of the legal health record. It is not the complete legal health record.[facility]
--- OUTSIDE RECORDS SUMMARY | 2025-04-24 13:52 | XMS_ITS | Clinical Summary ---
Author Organization [facility] Address [address] [place] [phone] Phone Care Team Providers Care Breakdown Man Name Role Phone Jeanmarie Fernandez MD Primary Care Provider [phone] Allergies No known active allergies Medications No [...] Medical Devices Not on file Care Teams Breakdown Man Relationship Specialty Start Date End Date Jeanmarie Fernandez MD [email or web address] PCP - General Family Medicine 12/24/17 Additional Source Comments The information contained in this document represents components of the legal health record. It is not the complete legal health record.[facility]
== END 2025-04-24 13:50 | disposition home or self-care (01) ==
LOC: HO.MRI 13:49
PROVIDERS: PCP Family Medicine; Visit Provider Psychiatry & Neurology Neurology
DX: R42 Dizziness and giddiness (principal); H53.9 Unspecified visual disturbance
CPT/HCPCS: 70553; A9585

== ENCOUNTER → 2025-05-02 08:30 | Outpatient (BNV) | payer OTHER, SELFPAY | PROVIDERS: Visit Provider Psychiatry & Neurology Neurology | DX: H53.9 Unspecified visual disturbance (principal) | CPT/HCPCS: 95930 ==